=== PATIENT | female | born 1985 | race Caucasian/White ===

== ENCOUNTER 2017-06-16 10:03 | Emergency (ER) | payer OTHER ==
[~2017-06-16] VITALS: Ht 157.5 cm; Wt 76.1 kg
[~2017-06-16 10:03] MED LIST: COLACE100 MG PO; ENDOCET 5-3251 EACH PO; FLEXERIL10 MG PO; IBUPROFEN800 MG PO; NICOTINE PATCH1 EAC1 TD; PRENATAL TABLE1 EAC3 PO; SYNTHROID112 MCG PO; ZANTAC150 MG PO
[2017-06-16] MEDS ORDERED: NAPROXEN500 MG PO (11:57)
[2017-06-16 12:20] VITALS: BP 102/92
== END 2017-06-16 12:20 | disposition home or self-care (01) ==
LOC: EME 10:03
DX: J02.0 Streptococcal pharyngitis (principal); E03.9 Hypothyroidism, unspecified; F17.200 Nicotine dependence, unspecified, uncomplicated
CPT/HCPCS: 87651 90; 99281; 99284; J0561; J1885